=== PATIENT | male | born 1985 | race Caucasian/White ===

== ENCOUNTER 2018-05-21 10:31 | Observation (INO) | payer BC, OTHER ==
[2018-05-21] MEDS ORDERED: Zofran 4 MG/2 ML VIAL IV PRN (10:40)
[2018-05-21] MEDS: Sodium Chloride 0.9% 1000 ML 1,000 ML IV SCH ×2 (10:57→21:00)
[2018-05-21] MEDS: MORPHINE SULFATE 4 MG INJ IV PRN ×2 (10:59→16:38)
[2018-05-21] MEDS: Levofloxacin 500MG/100ML D5W 500 MG/100 ML BAG IV SCH (11:05)
[2018-05-21 11:30] LABS: ALBUMIN 4.8 g/dL (3.5-5.0); ALKALINE PHOSPHATASE 61 U/L (38-126); AMYLASE 61 U/L (30-110); ANION GAP 15.9 MEQ/L (5-15); BLOOD UREA NITROGEN 13 mg/dL (9-20); CHLORIDE 103 mmol/L (98-107); Calcium 9.5 mg/dL (8.4-10.2); Carbon Dioxide 24 mmol/L (22-30); Creatinine 1 1.02 mg/dL (0.66-1.25); Glucose 102 mg/dL (74-106); LIPASE 33 U/L (23-300); Potassium 4.3 mmol/L (3.5-5.1); SGOT/AST 29 U/L (17-59); SGPT/ALT 29 U/L (0-50); SODIUM 139 mmol/L (137-145); Total Protein 7.8 g/dL (6.3-8.2)
[2018-05-21 11:43] LABS: BASOPHIL % 0.5 % (0.0-0.4); Basophil (Absolute #) 0.02 (0-0.4); Eosinophil % 2.2 % (0.00-5.0); Eosinophil (Absolute #) 0.09 (0-0.5); Granulocytes % 80.8 % (36.0-66.0); Hematocrit 44.6 % (42-50); Hemoglobin 15.1 gm/dl (12.5-18.0); Lymphocyte (Absolute #) 0.39 (1.0-4.6); Lymphocytes % 9.6 % (24.0-44.0); Mean Cell Volume 86.9 fl (78-100); Mean Corpuscular Hemoglobin 29.4 pg (26-32); Mean Corpuscular Hgb Concent. 33.9 g/dl (32-36); Mean Platelet Volume 11.4 fl (6-9.5); Monocyte (Absolute #) 0.28 (0.0-1.3); Monocytes % 6.9 % (0.0-12.0); Platelet Count 196 K/mm3 (150-450); Red Blood Count 5.13 M/mm3 (4.1-5.6); Red Cell Distribution Width 13.1 % (11.5-14.0); White Blood Count 4.1 K/mm3 (4.0-10.5)
[2018-05-21] MEDS: FLAGYL 500 MG IVPB 500 MG/100 ML BAG IV SCH ×2 (13:09→17:39)
--- NOTE | 2018-05-21 13:10 | XRAY ---
Indication: Abdomen and back pain. Bloating. Multiple contiguous axial images obtained through the abdomen and pelvis using 80 cc Isovue 370 contrast only. Comparison: June 02, 2016. Lung bases essentially clear. Heart is not enlarged. Noncontrasted stomach and bowel loops again appear nonobstructed. Normal appendix. No free fluid/air. There remains scattered nonspecific small subcentimeter mesenteric nodes. No pathologic lymphadenopathy. Spleen remains enlarged today measuring 15.5 cm in greatest axial dimension again with a few calcified granulomas. Stable small left mid renal cortical cyst. Remaining liver, gallbladder, pancreas, spleen, adrenal glands, kidneys, ureters, bladder, and aorta appear unremarkable. No pathologic retroperitoneal lymphadenopathy. Osseous structures intact again with lumbosacral junction degenerative disc disease. No ventral or inguinal hernias. Impression: 1. Stable splenomegaly and left renal cyst. 2. Remaining CT abdomen/pelvis with contrast exam is negative. CT DI 22.75.
[2018-05-21 13:34] LABS: Slide Review 1 YES
[2018-05-21] MEDS: TYLENOL 325 MG PO PRN ×2 (13:54→18:48)
[2018-05-21 15:11] LABS: INFLUENZA A NEGATIVE (NEGATIVE); INFLUENZA B NEGATIVE (NEGATIVE); RESPIRATORY SYNCTIAL VIRUS NEGATIVE (Negative)
[2018-05-21] MEDS: Protonix 40MG Tablet PO SCH (16:24)
[2018-05-21] MEDS ORDERED: MOTRIN 600 MG PO PRN (19:01)
[2018-05-22] MEDS: FLAGYL 500 MG IVPB 500 MG/100 ML BAG IV SCH ×2 (00:05→05:12)
[2018-05-22 06:42] VITALS: O2SAT 98
[2018-05-22 07:12] VITALS: BP 118/56; PULSE 78
[2018-05-22] MEDS: Sodium Chloride 0.9% 1000 ML 1,000 ML IV SCH (07:16)
--- NOTE | 2018-05-22 08:42 | PCM.DS ---
Discharge Summary Date of Admission: 05/21/18 10:40 Admitting Physician: DAIN VASQUEZ Primary Care Provider: DAIN VASQUEZ Allergies Allergies amoxicillin Allergy (Verified 06/02/16 14:57) Hospital Summary - Hospital Course Hospital Course: patient was admitted with low abd pain, weakness and leg pain and headache with fever. workup showed normal wbc, normal esr, ct abd/pel shows stable splenomegaly. improved with iv levaquin and flagyl, testicle pain c/w acute epididymitis and appears to have concurrent viral illness. - Vitals & Intake/Output Vital Signs: Vital Signs Temperature 97.6 F 05/22/18 07:11 Pulse Rate 78 05/22/18 07:11 Respiratory Rate 20 05/22/18 07:11 Blood Pressure 118/56 05/22/18 07:11 O2 Sat by Pulse Oximetry 98 05/22/18 07:11 Intake & Output: Intake & Output 05/19/18 05/20/18 05/21/18 05/22/18 11:59 11:59 11:59 11:59 Intake Total 1020 Balance 1020 Weight 104 kg - Lab Result Diagrams: 05/21/18 11:10 05/21/18 11:10 Lab Results-Last 24 Hrs: Lab Results-Last 24 Hours 05/21/18 05/21/18 05/21/18 Range/Units 11:10 11:10 11:10 WBC 4.1 (4.0-10.5) K/mm3 RBC 5.13 (4.1-5.6) M/mm3 Hgb 15.1 (12.5-18.0) gm/dl Hct 44.6 (42-50) % MCV 86.9 (78-100) fl MCH 29.4 (26-32) pg MCHC 33.9 (32-36) g/dl RDW 13.1 (11.5-14.0) % Plt Count 196 (150-450) K/mm3 MPV 11.4 H (6-9.5) fl Gran % 80.8 H (36.0-66.0) % Eos # (Auto) 0.09 (0-0.5) Absolute Lymphs (auto) 0.39 L (1.0-4.6) Absolute Monos (auto) 0.28 (0.0-1.3) Lymphocytes % 9.6 L (24.0-44.0) % Monocytes % 6.9 (0.0-12.0) % Eosinophils % 2.2 (0.00-5.0) % Basophils % 0.5 (0.0-0.4) % Absolute Granulocytes 3.30 (1.4-6.9) Basophils # 0.02 (0-0.4) ESR 4 (0-15) mm/hr Sodium 139 (137-145) mmol/L Potassium 4.3 (3.5-5.1) mmol/L Chloride 103 (98-107) mmol/L Carbon Dioxide 24 (22-30) mmol/L Anion Gap 15.9 H (5-15) MEQ/L BUN 13 (9-20) mg/dL Creatinine 1.02 (0.66-1.25) mg/dL Estimated GFR > 60.0 ML/MIN Glucose 102 (74-106) mg/dL Calcium 9.5 (8.4-10.2) mg/dL Total Bilirubin 0.70 (0.2-1.3) mg/dL AST 29 (17-59) U/L ALT 29 (0-50) U/L Alkaline Phosphatase 61 (38-126) U/L Serum Total Protein 7.8 (6.3-8.2) g/dL Albumin 4.8 (3.5-5.0) g/dL Amylase 61 (30-110) U/L Lipase 33 (23-300) U/L Influenza Type A Ag (NEGATIVE) Influenza Type B Ag (NEGATIVE) RSV (PCR) (Negative) Slides for Path Review YES 05/21/18 Range/Units 14:18 WBC (4.0-10.5) K/mm3 RBC (4.1-5.6) M/mm3 Hgb (12.5-18.0) gm/dl Hct (42-50) % MCV (78-100) fl MCH (26-32) pg MCHC (32-36) g/dl RDW (11.5-14.0) % Plt Count (150-450) K/mm3 MPV (6-9.5) fl Gran % (36.0-66.0) % Eos # (Auto) (0-0.5) Absolute Lymphs (auto) (1.0-4.6) Absolute Monos (auto) (0.0-1.3) Lymphocytes % (24.0-44.0) % Monocytes % (0.0-12.0) % Eosinophils % (0.00-5.0) % Basophils % (0.0-0.4) % Absolute Granulocytes (1.4-6.9) Basophils # (0-0.4) ESR (0-15) mm/hr Sodium (137-145) mmol/L Potassium (3.5-5.1) mmol/L Chloride (98-107) mmol/L Carbon Dioxide (22-30) mmol/L Anion Gap (5-15) MEQ/L BUN (9-20) mg/dL Creatinine (0.66-1.25) mg/dL Estimated GFR ML/MIN Glucose (74-106) mg/dL Calcium (8.4-10.2) mg/dL Total Bilirubin (0.2-1.3) mg/dL AST (17-59) U/L ALT (0-50) U/L Alkaline Phosphatase (38-126) U/L Serum Total Protein (6.3-8.2) g/dL Albumin (3.5-5.0) g/dL Amylase (30-110) U/L Lipase (23-300) U/L Influenza Type A Ag NEGATIVE (NEGATIVE) Influenza Type B Ag NEGATIVE (NEGATIVE) RSV (PCR) NEGATIVE (Negative) Slides for Path Review - Radiology Exams Ordered Rad Exams-Entire Visit: Radiology Procedures Category Date Time Status ABDOMEN AND PELVIS W CONTRAST [CT] Stat Exams 05/21/18 11:00 Completed - Procedures and Test Procedures and Tests throughout Hospitalization: Therapy Orders & Screens 05/21/18 10:55 EKG ROUTINE Comment: Diagnosis: abd pain 05/21/18 11:36 OT Screen per Nursing Assess ONCE Comment: Protocol Order Physician Instructions: Greater than 3 points order OT Admission Screening Reason For Exam: Triggered on Admission Diagnosis: abd pain. Open Wound/Cellutlitis/Pressure Ulcers: No Acute Fx/ORIF/Change in wt bearing status: No Severe MUSCULOSKELETAL pain: Yes ADL Dysfunction: No Acute CVA w/Hemiparesis/Hemiplegia: No Decreased Functional Mobility/Strength: No Sprain/Strain: No Acute Post-op Mobility Dysfunction: No Total Points: 5 PT Screen per Nursing Assess ONCE Comment: Protocol Order Physician Instructions: Greater than 3 points order PT Admission Screenin Reason For Exam: Triggered on Admission Diagnosis: abd pain. Open Wound/Cellutlitis/Pressure Ulcers: No Acute Fx/ORIF/Change in wt bearing status: No Severe MUSCULOSKELETAL pain: Yes ADL Dysfunction: No Acute CVA w/Hemiparesis/Hemiplegia: No Decreased Functional Mobility/Strength: No Sprain/Strain: No Acute Post-op Mobility Dysfunction: No Total Points: 5 05/21/18 15:49 OT Screen per Nursing Assess ONCE Comment: Protocol Order Physician Instructions: Greater than 3 points order OT Admission Screening Reason For Exam: Triggered on Admission Diagnosis: abd pain. Open Wound/Cellutlitis/Pressure Ulcers: No Acute Fx/ORIF/Change in wt bearing status: No Severe MUSCULOSKELETAL pain: Yes ADL Dysfunction: No Acute CVA w/Hemiparesis/Hemiplegia: No Decreased Functional Mobility/Strength: No Sprain/Strain: No Acute Post-op Mobility Dysfunction: No Total Points: 5 PT Screen per Nursing Assess ONCE Comment: Protocol Order Physician Instructions: Greater than 3 points order PT Admission Screenin Reason For Exam: Triggered on Admission Diagnosis: abd pain. Open Wound/Cellutlitis/Pressure Ulcers: No Acute Fx/ORIF/Change in wt bearing status: No Severe MUSCULOSKELETAL pain: Yes ADL Dysfunction: No Acute CVA w/Hemiparesis/Hemiplegia: No Decreased Functional Mobility/Strength: No Sprain/Strain: No Acute Post-op Mobility Dysfunction: No Total Points: 5 Discharge Exam General Appearance: no apparent distress, alert Skin Exam: normal color, warm, dry Respiratory Exam: normal breath sounds, lungs clear, No respiratory distress Cardiovascular Exam: regular rate/rhythm, normal heart sounds Gastrointestinal/Abdomen Exam: soft, No tenderness, No mass Male Genitalia Exam: normal genitalia, other (epididymis tender on left) Final Diagnosis/Problem List - Final Discharge Diagnosis/Problem (1) Epididymitis Current Visit: Yes Status: Acute Assessment & Plan: home on po levaquin (2) Abdominal pain Current Visit: Yes Status: Acute (3) Viral syndrome Current Visit: Yes Status: Acute - Discharge Disposition: Home, Self-Care Condition: Stable Prescriptions: New Levofloxacin [Levaquin] 500 mg PO DAILY #7 tablet Continue Omeprazole 20 MG [Prilosec 20 mg] 20 mg PO DAILY Follow up with: DAIN VASQUEZ MD [Primary Care Provider] - 05/25/18 9:00 am
[2018-05-22] MEDS: Levofloxacin 500MG/100ML D5W 500 MG/100 ML BAG IV SCH (09:28)
[2018-05-22] MEDS: Protonix 40MG Tablet PO SCH (09:28)
== END 2018-05-22 11:00 | disposition home or self-care (01) ==
LOC: MED SURG 10:40
PROVIDERS: ADMIT Family Medicine; ATTEND Family Medicine
DX: R10.9 Unspecified abdominal pain (principal); B34.9 Viral infection, unspecified; F32.9 Major depressive disorder, single episode, unspecified; K21.9 Gastro-esophageal reflux disease without esophagitis; L40.9 Psoriasis, unspecified; R16.1 Splenomegaly, not elsewhere classified
CPT/HCPCS: 36415; 74177; 80053; 82150; 83690; 85025; 85652; 87040; 87631; 93005; G0378; J1956; J2270; J2405; A9270-GY

== ENCOUNTER 2019-08-18 09:17 | Day surgery (SDC) | payer OTHER ==
[2019-08-18] MEDS ORDERED: Depo-Medrol 40 MG/ML IM ONE (09:18)
[2019-08-18] MEDS ORDERED: Xylocaine 1% Vial 30 ML PF IJ ONE (09:18)
[2019-08-18] MEDS ORDERED: Sodium Chloride 0.9(Preservative Free) 10 ML IJ ONE (09:18)
[2019-08-18] MEDS ORDERED: DIPRIVAN 200 MG/20 ML IV ONE (10:45)
[2019-08-18] MEDS ORDERED: Ketamine HCl 50 MG/ML ONE (10:45)
--- NOTE | 2019-08-18 13:08 | XRAY ---
Indication: Lumbar THU. Intraoperative fluoroscopy was provided for 20 seconds. 3 digital spot images submitted for interpretation demonstrates midline posterior needle tip projecting just posterior to the lumbosacral interspace. Small amount of contrast injected for needle tip placement. Correlate with intraoperative findings/report.
--- NOTE | 2019-08-18 13:13 | XRAY ---
20 seconds fluoroscopy time in surgery for lumbar THU.
[2019-08-18] MEDS ORDERED: Lactated Ringers 1,000 ML IV ONE (15:40)
== END 2019-08-18 11:15 | disposition home or self-care (01) ==
LOC: SDC-PAIN 09:17
PROVIDERS: ATTEND Psychiatry & Neurology Pain Medicine
DX: M54.16 Radiculopathy, lumbar region (principal)
CPT/HCPCS: 62323; 72100; 77003; J1030; J2001; J2704; Q9966

== ENCOUNTER 2021-05-24 05:50 | Day surgery (SDC) | payer OTHER ==
[2021-05-24] MEDS ORDERED: Lactated Ringers 1,000 ML IV SCH (06:30)
[2021-05-24] MEDS ORDERED: DIPRIVAN 200 MG/20 ML IV ONE ×2 (07:12→07:45)
[2021-05-24] MEDS ORDERED: Versed 2 MG/2 ML Injection ONE (07:12)
--- NOTE | 2021-05-24 07:51 | PCM.DCORD ---
- Discharge Disposition: Home, Self-Care Condition: Stable Prescriptions: New PANTOPRAZOLE 40 mg Tablet [Protonix 40MG Tablet] 40 mg PO QPM #30 tab Instructions: Hiatal Hernia Follow up with: DAIN VASQUEZ MD [Primary Care Provider] -
--- NOTE | 2021-05-24 08:16 | OP ---
SURGERY DATE/TIME: 05/24/2021 0737 PREOPERATIVE DIAGNOSIS: Dysphagia. POSTOPERATIVE DIAGNOSIS: Small hiatal hernia. PROCEDURE: EGD. SURGEON: Blayne Prado M.D. ANESTHESIA: MIR Woodruff CRNA. ESTIMATED BLOOD LOSS: None. SPECIMENS: None. DESCRIPTION OF PROCEDURE: After informed written consent was obtained, the patient was taken to the endoscopy suite. He was placed in left lateral decubitus position and a bite block was inserted. Anesthesia was titrated to the desired level of consciousness and the endoscope was inserted into the posterior oropharynx. Under direct visualization the esophagus is easily traversed. There is normal esophageal mucosa. No obvious lesions or defects. The gastroesophageal junction appeared normal other than there was a small hiatal hernia. The stomach had a normal rugated gastric mucosa. There were no lesions or defects. The pylorus was traversed and the first and second portions of the duodenum appeared to be within normal limits. Upon withdrawal again there was a small hiatal hernia appreciable. No other abnormalities. The scope was removed and the patient was transferred to the recovery room in good condition. I have recommended proton pump inhibitor therapy at this time and will follow up.
[2021-05-24 08:42] VITALS: BP 132/80; PULSE 69; O2SAT 98
== END 2021-05-24 08:45 | disposition home or self-care (01) ==
LOC: SDC 05:50
PROVIDERS: ATTEND Family Medicine
DX: K44.9 Diaphragmatic hernia without obstruction or gangrene (principal)
CPT/HCPCS: J2250; J2704